=== PATIENT | female | born 1990 | race Two or more races ===

== ENCOUNTER 2017-03-13 17:49 | Emergency (ER) | payer MEDICAID, OTHER ==
[~2017-03-13] VITALS: Ht 152.4 cm; Wt 46.9 kg
[~2017-03-13 17:49] MED LIST: IBUP800T PO; MISO100T PO; OXYC-229 PO
[2017-03-13 18:08] VITALS: BP 113/71
== END 2017-03-13 19:45 | disposition left against medical advice (07) ==
LOC: ED 19:40
DX: O26.891 Other specified pregnancy related conditions, first trimester (principal); O21.9 Vomiting of pregnancy, unspecified; R10.84 Generalized abdominal pain; Z3A.09 9 weeks gestation of pregnancy
CPT/HCPCS: 76801; 81001; 99285

== ENCOUNTER 2017-09-23 12:54 | Outpatient (CLI) | payer MEDICAID ==
[~2017-09-23] VITALS: Ht 152.4 cm; Wt 56.3 kg
[~2017-09-23 12:54] MED LIST changes: +IBUP-1223 PO; -IBUP800T PO; -OXYC-229 PO; +OXYC-307 PO
[2017-09-23 13:00] VITALS: BP 105/72
[2017-09-23 14:33] LABS: AMNISURE NEGATIVE (NEGATIVE)
[2017-09-23] MEDS ORDERED: tylenol pm PO (14:35)
[2017-09-23 14:36] LABS: FERNING TEST FERNING NOT PRESENT (NEGATIVE)
== END 2017-09-23 14:45 | disposition home or self-care (01) ==
LOC: LDOP 12:54
PROVIDERS: ATTEND Obstetrics & Gynecology
DX: O26.893 Other specified pregnancy related conditions, third trimester (principal); R10.9 Unspecified abdominal pain; Z3A.37 37 weeks gestation of pregnancy
CPT/HCPCS: 59025; 84112; 89060; 99211; G0463; Q0114

== ENCOUNTER 2017-10-02 23:46 | Outpatient (CLI) | payer MEDICAID ==
[~2017-10-02 23:46] MED LIST changes: +tylenol pm PO
[2017-10-03] MEDS ORDERED: OXYcodone/APAP 5/325MG TABLET ONE (00:49)
[2017-10-03] MEDS ORDERED: OXYcodone/APAP 5/325MG TABLET PO PRN (01:00)
== END 2017-10-03 01:45 | disposition home or self-care (01) ==
LOC: LDOP 23:46
PROVIDERS: ATTEND Obstetrics & Gynecology
DX: O26.893 Other specified pregnancy related conditions, third trimester (principal); R10.9 Unspecified abdominal pain; R07.81 Pleurodynia; Z3A.00 Weeks of gestation of pregnancy not specified
CPT/HCPCS: 59025; 99211; G0463

== ENCOUNTER 2017-10-04 05:41 | Inpatient (IN) | payer MEDICAID ==
[2017-10-04] VITALS (7 sets, daily range): BP systolic 98–117; BP diastolic 58–74
[~2017-10-04] VITALS: Ht 152.4 cm; Wt 58.9 kg
[2017-10-04] MEDS: LACTATED RINGERS 1,000 ML IV SCH ×9 (05:45→23:34)
[2017-10-04] MEDS ORDERED: NEWBORN KIT ONE (05:48)
[2017-10-04] MEDS ORDERED: OXYTOCIN 30U/ 0.9% NaCL 500ML 500 ML ONE (05:48)
[2017-10-04] MEDS ORDERED: SODIUM CITRATE/CITRIC ACID 30 ML UDC PO ONE (06:00)
[2017-10-04] MEDS ORDERED: METOCLOPRAMIDE 5 MG/ML, 2ML IV ONE (06:00)
[2017-10-04] MEDS ORDERED: LACTATED RINGERS 1,000 ML IVBOLUS ONE (06:00)
[2017-10-04] MEDS ORDERED: SODIUM CITRATE/CITRIC ACID 30 ML UDC ONE (06:11)
[2017-10-04 06:23] LABS: BASOPHILS # (AUTO) 0.06 x10^3/uL (0-0.1); BASOPHILS % (AUTO) 1 % (0-1); EOSINOPHILS # (AUTO) 0.05 x10^3/uL (0-0.4); EOSINOPHILS % (AUTO) 1 % (1-7); LYMPHOCYTES # (AUTO) 2.35 x10^3/uL (1-3.4); LYMPHOCYTES % (AUTO) 26 % (22-44); MD NO; MEAN CORPUSCULAR HGB CONC 31.7 g/dL (32.4-35.8); MEAN CORPUSCULAR VOLUME 75.8 fL (80-100); MONOCYTES # (AUTO) 0.77 x10^3/uL (0.2-0.8); MONOCYTES % (AUTO) 8 % (2-9); NEUTROPHILS % (AUTO) 65 % (42-75); PLATELET COUNT 276 x10^3/uL (130-400); RED BLOOD COUNT 3.95 x10^6/uL (3.82-5.3); RED CELL DISTRIBUTION WIDTH 17.8 % (9.6-15.2)
[2017-10-04] MEDS ORDERED: FENTANYL PF 100 MCG/2ML ONE (07:05)
[2017-10-04] MEDS ORDERED: OXYTOCIN 10 UNITS/ML, 1ML ONE (07:28)
[2017-10-04] MEDS ORDERED: KETOROLAC 30 MG/1 ML ONE (07:28)
[2017-10-04] MEDS ORDERED: CEFAZOLIN 1,000 MG ONE (07:28)
[2017-10-04] MEDS: OXYTOCIN 30U/ 0.9% NaCL 500ML 500 ML IV SCH ×4 (07:34→17:34)
[2017-10-04] MEDS ORDERED: METHYLERGONOVINE 0.2 MG/ML IM PRN (08:00)
[2017-10-04] MEDS ORDERED: morphine SULFATE 10 MG/ML, 1ML IVPush PRN ×2 (08:00)
[2017-10-04] MEDS ORDERED: ACETAMINOPHEN 325 MG TABLET PO PRN (08:00)
[2017-10-04] MEDS ORDERED: ONDANSETRON 2MG/ML, 2ML IV PRN (08:00)
[2017-10-04] MEDS ORDERED: CARBOPROST TROMETHAMINE 250 MCG/ML, 1ML IM PRN (08:00)
[2017-10-04] MEDS ORDERED: MISOPROSTOL 200 MCG TABLET PR PRN ×2 (08:00→08:30)
[2017-10-04] MEDS ORDERED: MISOPROSTOL 200 MCG TABLET ONE (08:17)
[2017-10-04] MEDS ORDERED: morphine SULFATE 10 MG/ML, 1ML IV PRN (09:00)
[2017-10-04] MEDS ORDERED: FENTANYL PF 100 MCG/2ML IV PRN (09:00)
[2017-10-04] MEDS ORDERED: ONDANSETRON 2MG/ML, 2ML IVPush PRN (09:00)
[2017-10-04] MEDS ORDERED: PROMETHAZINE 25 MG/ML, 1ML IV PRN (09:00)
[2017-10-04] MEDS ORDERED: MEPERIDINE/PF 25MG/0.5ML IVPush PRN (09:00)
[2017-10-04] MEDS: PRENATAL VIT/IRON/FA 1 EACH TABLET PO SCH (09:00)
[2017-10-04] MEDS ORDERED: EPHEDRINE 50 MG/ML, 1ML IVPush PRN (09:00)
[2017-10-04] MEDS ORDERED: OXYcodone 5 MG/5 ML ORAL.SOL UDC PO PRN (09:00)
[2017-10-04 14:20] LABS: CULTURE INDICATED? NO; MICROSCOPIC AUTO
[2017-10-04] MEDS: IBUPROFEN 600 MG TABLET PO PRN (15:43)
[2017-10-04] MEDS: OXYcodone/APAP 5/325MG TABLET PO PRN ×2 (15:43→20:22)
[2017-10-05 00:15] VITALS: BP 112/71
[2017-10-05] MEDS: OXYTOCIN 30U/ 0.9% NaCL 500ML 500 ML IV SCH ×2 (03:34→13:34)
[2017-10-05] MEDS: LACTATED RINGERS 1,000 ML IV SCH ×3 (03:34→13:34)
[2017-10-05] MEDS: OXYcodone/APAP 5/325MG TABLET PO PRN ×5 (03:40→20:58)
[2017-10-05] MEDS: IBUPROFEN 600 MG TABLET PO PRN ×3 (03:40→20:58)
[2017-10-05 04:21] VITALS: BP 110/71
[2017-10-05 06:12] LABS: BASOPHILS # (AUTO) 0.09 x10^3/uL (0-0.1); BASOPHILS % (AUTO) 1 % (0-1); EOSINOPHILS # (AUTO) 0.01 x10^3/uL (0-0.4); EOSINOPHILS % (AUTO) 0 % (1-7); LYMPHOCYTES # (AUTO) 1.37 x10^3/uL (1-3.4); LYMPHOCYTES % (AUTO) 9 % (22-44); MD NO; MEAN CORPUSCULAR HEMOGLOBIN 24.1 pg (27.0-34.8); MEAN CORPUSCULAR VOLUME 75.3 fL (80-100); MEAN PLATELET VOLUME 8.3 fL (7.4-10.4); MONOCYTES # (AUTO) 0.74 x10^3/uL (0.2-0.8); MONOCYTES % (AUTO) 5 % (2-9); NEUTROPHILS % (AUTO) 86 % (42-75); PLATELET COUNT 272 x10^3/uL (130-400); RED BLOOD COUNT 4.27 x10^6/uL (3.82-5.3); RED CELL DISTRIBUTION WIDTH 18.2 % (9.6-15.2)
[2017-10-05 07:50] VITALS: BP 104/70
[2017-10-05] MEDS ORDERED: DOCUSATE 100 MG CAPSULE ONE (08:09)
[2017-10-05] MEDS: DOCUSATE 100 MG CAPSULE PO PRN ×2 (08:14→20:58)
[2017-10-05] MEDS: PRENATAL VIT/IRON/FA 1 EACH TABLET PO SCH (08:15)
[2017-10-05 21:00] VITALS: BP 111/75
[2017-10-06] MEDS: OXYcodone/APAP 5/325MG TABLET PO PRN ×2 (08:04→12:28)
[2017-10-06] MEDS: IBUPROFEN 600 MG TABLET PO PRN ×3 (08:04→21:31)
[2017-10-06] MEDS: PRENATAL VIT/IRON/FA 1 EACH TABLET PO SCH (08:04)
[2017-10-06] MEDS: FERROUS GLUCONATE 324 MG TABLET PO SCH ×3 (08:04→17:55)
[2017-10-06] MEDS: DOCUSATE 100 MG CAPSULE PO PRN ×2 (08:05→21:31)
[2017-10-06 08:40] VITALS: BP 107/71
[2017-10-06 19:32] VITALS: BP 108/75
[2017-10-07 07:15] VITALS: BP 104/72
[2017-10-07] MEDS: PRENATAL VIT/IRON/FA 1 EACH TABLET PO SCH (07:38)
[2017-10-07] MEDS: IBUPROFEN 600 MG TABLET PO PRN (07:38)
[2017-10-07] MEDS: DOCUSATE 100 MG CAPSULE PO PRN (07:38)
[2017-10-07] MEDS: FERROUS GLUCONATE 324 MG TABLET PO SCH ×2 (07:38→12:06)
[2017-10-07] MEDS: OXYcodone/APAP 5/325MG TABLET PO PRN ×3 (07:39→12:06)
[2017-10-07] MEDS ORDERED: OXYC-302 PO (10:10)
[2017-10-07] MEDS ORDERED: IBUP-1222 PO (10:11)
[2017-10-07] MEDS ORDERED: SENN-1 PO (10:12)
== END 2017-10-07 13:50 | disposition home or self-care (01) | DRG 766 ==
LOC: LDIP 05:41 → 2NW 11:00
PROVIDERS: ADMIT Obstetrics & Gynecology; ATTEND Obstetrics & Gynecology
PROC: 10D00Z1 Extraction of Products of Conception, Low, Open Approach (ICD-10-PCS; principal; 2017-10-04)
DX: O82 Encounter for cesarean delivery without indication (principal); Z37.0 Single live birth; Z3A.39 39 weeks gestation of pregnancy
CPT/HCPCS: 36415; 81001; 85025; 86850; 86900; J0690; J1885; J3010; J2270; J2590; J2765; J7120

== ENCOUNTER 2018-10-24 20:23 | Emergency (ER) | payer MEDICAID ==
[~2018-10-24] VITALS: Ht 160 cm; Wt 48.0 kg
[~2018-10-24 20:23] MED LIST changes: +IBUP-1222 PO; +OXYC-302 PO; +SENN-92 PO
[2018-10-24 20:28] VITALS: BP 104/70
[2018-10-24] MEDS ORDERED: ACETAMINOPHEN 500 MG TABLET ONE (20:33)
--- NOTE | 2018-10-24 20:35 | NUR ---
ONLINE JOURNALIST: MEDICATED PER EMAR IN TRIAGE
[2018-10-24] MEDS ORDERED: ACETAMINOPHEN 500 MG TABLET PO ONE (21:00)
[2018-10-24 22:29] LABS: MICROSCOPIC NOT IND
[2018-10-24 22:33] LABS: CULTURE INDICATED? NO
== END 2018-10-24 22:51 | disposition home or self-care (01) ==
LOC: ED 22:15
DX: O99.89 Other specified diseases and conditions complicating pregnancy, childbirth and the puerperium (principal); G89.11 Acute pain due to trauma; M54.5 Low back pain; Z3A.12 12 weeks gestation of pregnancy
CPT/HCPCS: 76801; 81003; 99284